=== PATIENT | male | born 2000 | race Caucasian/White ===

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

== ENCOUNTER 2018-07-07 12:38 | Emergency (ER) | payer SELFPAY ==
--- NOTE | 2018-07-07 13:50 | ULT ---
BILATERAL TESTICULAR ULTRASOUND: HISTORY: Testicular pain. COMPARISON: None. TECHNIQUE: Real-time lr-scale, color Doppler and spectral analysis of the testicles was performed. FINDINGS: The right testicle measures 3.2 x 4.5 x 2.5 cm. The left testicle measures 3.3 x 4.5 x 2.8 cm. No m ass. Adequate symmetric vascular flow to both testicles. Both epididymides are normal. Small bilat eral hydroceles. IMPRESSION: Small bilateral hydroceles. POS: [facility]
== END 2018-07-07 15:52 | disposition home or self-care (01) ==
LOC: ERS 12:38
DX: N43.3 Hydrocele, unspecified (principal); I48.91 Unspecified atrial fibrillation
CPT/HCPCS: 76870; 93976